=== PATIENT | male | born 1935 | race Caucasian/White ===

== ENCOUNTER 2023-11-06 19:29 | Inpatient (IN) | payer MEDICARE, BC, SELFPAY ==
[2023-11-01] VITALS (26 sets, daily range): BP systolic 78–175; BP diastolic 49–94; PULSE 69–82; BMI 25.3
--- NOTE | 2023-11-01 16:54 | ED.GENMED ---
History of Present Illness
General
Chief Complaint: Blood Pressure Problem
Source: patient and family
Time Seen by Provider: 11/01/23 16:28
History of Present Illness
History of Present Illness:
87yoM with a history of coronary artery disease s/p PCI, hypertension, hyperlipidemia, and CKD presenting for evaluation of dizziness. Patient had a syncopal episode yesterday afternoon. He was standing in his room when he started to 'not feel
right.' He then fell and lost consciousness. He was on the floor for about 1-1.5 hours until staff at his assisted living facility found him. He was evaluated at [facility] yesterday after the incident and had labs and a saini scan which were
reportedly normal. He received IV medications for elevated blood pressures during his ED stay and was ultimately discharged. He reports dizziness today which he describes as lightheadedness. Dizziness occurs with head movement and position changes.
Daughter states he was very wobbly today and he was having significant difficulty with ambulation. Daughter checked his BP today which was 180 systolic so she brought him to the ED. Patient's amlodipine was recently discontinued 2 weeks ago by his
report writer.
Phy Exam
General Physical Exam
General Presentation: well appearing and no apparent distress
General age: appears stated age
General Skin: warm and dry
General Habitus: normal
General Mental: alert
Cardiovascular Exam
Cardiovascular Exam: regular rate/rhythm and no edema
Pulmonary Exam
Pulmonary Exam: lungs clear, no respiratory distress, no crackles and no wheezing
Neurological Exam
Neurological Exam: alert
[place] Coma Scale
Eye Opening: Spontaneous
Verbal Response: Oriented
Motor Response: Obeys Commands
GCS Total Score: 15
Skin Exam
Skin Exam: normal color and warm/dry
Psychiatric Exam
Psychiatric Exam: normal mood/affect
Course
Orders/Labs/Results
Orders:
Orders
11/01/23 14:45
ECG [Electrocardiogram (*1)] Urgent
Reason for Study: Hypertension, Benign
11/01/23 14:46
EKG- Treatment ONCE
11/01/23 16:33
Case Management Consult ONCE
Case Management Consult: Discharge Planning
Requested By:: PT/FAMILY
Comment: Pt in assisted living. Daughter is concerned d/t pt weakness and needing more assistance.
11/01/23 16:52
Cardiac Monitoring- Treatment ONCE
11/01/23 16:53
PT Consult [Pt Eval And Treat] Urgent
Activity Level: Out of Bed- Ad Katherine
11/01/23 17:09
Complete Blood Count/With Diff Urgent
Comprehensive Metabolic Panel Urgent
TSH Reflex To Free T4 Routine
Troponin I Urgent
11/01/23 19:42
Admit/Transfer Patient As Directed
Co-Sign Provider:
Level of Care: Observation services
Assign to:: Telemetry
Physician / Group: Deni
Diagnosis: Dizziness / Fall
Reason for Telemetry: CVA/TIA
Date to Stop Telemetry: 11/04/23
Time to Stop Telemetry: 11:00
11/01/23 19:43
Code Status As Directed
Resuscitation Status: Do not resuscitate
Reached after discussion with pt or family/Healthcare POA: Yes
DNR Bracelet Application ONCE
11/01/23 20:51
Acetaminophen [Tylenol] 650 mg PO Q4HPRN PRN
Carvedilol [Coreg] 3.125 mg PO BID
Dextrose 50%-Water [Dextrose 50% Syringe] 12.5 grams IV [id number] PRN
Glucagon [GlucaGen] 1 mg IM PRN PRN
Meclizine [Antivert] 12.5 mg PO Q8HPRN PRN
11/01/23 20:51
Activity As Directed
Activity Level: Ambulate
With Assistance
Bedside Glucose Monitoring As Directed
Frequency: AC&HS
Additional Instructions:: Change to q6h if pt on TPN, tube feeding or not eating
Bladder Scan As Directed
Follow Bladder Retention/Intermittent Cath Algorithm?: Yes
PRN if no void in __ hours: 6
Frequency: Per Retention Algorithm
If Bladder Scan Result >: 400
then:: Straight cath
EKG with chest pain [ECG as needed] As Directed
ECG as needed for:: Chest Pain
I/O [Intake/ Output] As Directed
Frequency: Per unit guidelines
Neurological Checks As Directed
Frequency: q4h
Orthostatic Vital Signs As Directed
Orthostatic VS Frequency: BID
Pneumatic Compression Sleeves As Directed
Type: Knee high
Straight Cath As Directed
Frequency: Per Retention Algorithm
Additional Instructions: straight cath as needed per acute urinary retention algorithm for 24 hrs
Additional Instructions: for bladder scan greater than 400 mL
Vital Signs As Directed
Frequency: Per unit guidelines
Weight As Directed
Frequency: Daily
Oxygen Therapy [O2 Therapy] [RESP] Routine
Titrate/Wean O2 to maintain O2 sat greater than (%): 94
Ot Eval And Treat Routine
PT Consult [Pt Eval And Treat] Routine
Activity Level: Ambulate
With Assistance
DX Deep Vein Thrombosis Video Routine
11/01/23 22:00
Atorvastatin [Lipitor] 20 mg PO HS
11/01/23 23:00
Troponin I Q6H
11/02/23 Breakfast
2000 calorie (17 carb) Diabetic
At Your Request: Limited Participation
Does patient need a safe tray?: No
Fluid Restriction: 1440 mL/day (48 oz)
Basic Metabolic Panel IN AM
Cardiovascular Evaluation IN AM
Complete Blood Count/No Diff IN AM
Glycohemoglobin (HgbA1c) IN AM
MR Brain Without Contrast IN AM
Comment:
Reason For Exam: CVA / TIA
Recent pill cam endoscopy?: No
11/02/23 07:30
Insulin Aspart Corrective Low [Novolog Flexpen-Low Resistance] See Protocol SC AC
11/02/23 08:00
Aspirin Low Dose EC [Aspir Low (Enteric Coated)] 81 mg PO DAILY
Pantoprazole [Protonix] 40 mg PO DAILY
Sodium Chloride 1 gram PO DAILY
Valsartan [Diovan] 160 mg PO DAILY
11/04/23 11:00
DC Protocol for Telemetry ONCE
Abnormal Lab Results
11/01/23
17:09
RBC 3.27 L 10^6/uL
(4.70-6.10)
Hgb 12.0 L g/dL
(13.0-18.0)
Hct 33.2 L %
(39.0-52.0)
MCV 101.5 H fL
(80.0-94.0)
MCH 36.7 H pg
(27.0-31.0)
Absolute Neuts (auto) 6.7 H 10^3/uL
(1.4-6.5)
Absolute Monos (auto) 0.9 H 10^3/uL
(0.1-0.6)
Lymphocytes % 13.9 L %
(20.5-51.1)
Monocytes % 10.2 H %
(1.7-9.3)
Sodium 133 L mmol/L
(135-145)
Chloride 96 L mmol/L
(98-107)
BUN 36 H mg/dl
(9-20)
Creatinine 1.7 H mg/dL
(0.7-1.3)
Glucose 118 H mg/dl
(70-99)
Alkaline Phosphatase 187 H U/L
(38-126)
Troponin I 0.047 H* ng/ml
11/01/23 17:09
11/01/23 17:09
Vital Signs
Initial and Last Documented VS:
Initial Vital Signs
Temp Pulse BP Pulse Ox
97.9 F 56 127/57 97
11/01/23 14:35 11/01/23 14:35 11/01/23 14:35 11/01/23 14:35
Last Documented Vital Signs
Temp Pulse Resp BP Pulse Ox
97.8 F 69 18 153/78 95
11/01/23 23:15 11/01/23 23:15 11/01/23 23:15 11/01/23 23:15 11/01/23 23:15
MDM/Problems Addressed
Differential Diagnosis Includes:
87yoM here with dizziness. Had a syncopal episode yesterday. Seen at an outside ED and saini scan negative for injuries. He is now having dizziness with movement and ambulation. He is afebrile and hemodynamically stable. He is well appearing in no
distress. Differential diagnosis includes but is not limited to: postconcussive syndrome, peripheral vertigo, CVA, orthostatic hypotension
Initial ED plan: Check cardiac labs and EKG.
*EKG
Interpreted by ED Provider?: Yes
EKG Intrepretation Date: 11/01/23
Heart Rate: 60
Rate: normal
Rhythm: sinus
Gabbs: normal axis
Interval: normal interval
Ischemia: non-specific ST changes
*Critical Care Note
Total Time (30-74mins, 75-104mins- exclusive of procedures): Not Applicable
Update Note
Update Note:
Labs reveal a troponin of 0.047. No ST changes seen on EKG. Creatinine 1.7 which is baseline. Physical therapy unavailable for evaluation. Will admit for further evaluation and management.
ED Attending Note
-
Portions of this chart may have been created with voice recognition software.� Occasional wrong word or��sound alike� substitutions may have occurred due to the inherent limitations of voice recognition software.
Discharge Plan
Departure
Patient Disposition: Admit
Date of Disposition: 11/01/23
Time of Disposition: 19:11
Presentation/result/management discussed w/ accepting MD/DO: Hospitalist
Discharge Problem:
Dizziness, Elevated troponin
Interventions
Interventions:
*Risk Screen - Suicide Last Done: 11/01/23 14:39
*General Assessment Last Done: 11/01/23 14:39
*Neglect/Abuse Screening Last Done: 11/01/23 14:39
ED- Fall Risk Assessment Last Done: 11/01/23 20:45
*ED COVID-19 Vaccine History Last Done: 11/01/23 15:58
*Nursing Disposition Last Done: 11/01/23 20:45
ED- Cardiac Assessment Last Done: 11/01/23 15:57
ED- Neurological Assessment Last Done: 11/01/23 15:57
ED- Pulmonary Assessment Last Done: 11/01/23 15:57
Discharge Date and Time
Discharge Date/Time: 11/01/23 20:45
--- NOTE | 2023-11-01 16:54 | CM ---
CM met with patient and daughter in room. Patient and daughter confirmed that patient lives at [facility] in [place]. He is currently in assisted living and only receives medication assistance. Patient uses a rolling walker and daughter reports that
she able to have him visit with her in her home without mobility concerns. He has a fall and was treated at an outside hospital. Patient's daughter stated that his weakness and dizziness is new and she feels that he cannot safely ambulate.
RENETTA updated ED PA and bedside RN.
[2023-11-01 17:18] LABS: % Basophils 0.2 % (0-2); % Eosinophils 1.1 % (0-6); % Immature Granulocytes 0.3 % (0-0.5); % Lymphocytes 13.9 % (20.5-51.1); % Monocytes 10.2 % (1.7-9.3); % Neutrophils 74.3 % (42.2-75.2); Absolute Eosinophils 0.1 10^3/uL (0-0.7); Absolute Lymphocytes 1.3 10^3/uL (1.2-3.4); Absolute Monocytes 0.9 10^3/uL (0.1-0.6); Absolute Neutrophils 6.7 10^3/uL (1.4-6.5); Hematocrit 33.2 % (39.0-52.0); Mean Corp Hgb Conc. 36.1 g/dL (33.0-37.0); Mean Corpuscular Hgb 36.7 pg (27.0-31.0); Mean Corpuscular Volume 101.5 fL (80.0-94.0); Mean Platelet Volume 8.9 fL (7.4-10.4); Nucleated Red Blood Cells % 0 % (-); Platelet Count 163 10^3/uL (130-400); Red Blood Cell Count 3.27 10^6/uL (4.70-6.10); Red Cell Dist. Width 12.1 % (11.5-14.5)
[2023-11-01 17:34] LABS: ALT (SGPT) 49 U/L (0-50); AST (SGOT) 46 U/L (17-59); Albumin 4.1 g/dl (3.5-5.0); Alkaline Phosphatase 187 U/L (38-126); Blood Urea Nitrogen 36 mg/dl (9-20); Calcium 9.8 mg/dl (8.4-10.2); Carbon Dioxide 28 mmol/L (22-30); Chloride 96 mmol/L (98-107); Glucose 118 mg/dl (70-99); Sodium 133 mmol/L (135-145); Total Bilirubin 0.9 mg/dl (0.2-1.3); Total Protein 6.9 g/dl (6.3-8.2); eGFR 39.02
[2023-11-01 17:47] LABS: Troponin I 0.047 ng/ml
--- NOTE | 2023-11-01 19:46 | HPS.HSE ---
Family Physician
-
Family Physician: * NONE
Chief Complaint
-
Syncope
History of Present Illness
Patient is an 87y M with PMH significant for ASCVD, CKD, HTN and DM-II who presents to ED complaining of dizziness. Patient was feeling well yesterday AM and is independent with ADLs at baseline - though he lives in an assisted living facility.
Yesterday evening he began to feel dizzy and lightheaded. He describes room spinning sensation, unsteadiness as well as lightheadedness. The next thing he recalls is waking on the floor of his apartment. He does not recall the fall itself and it
is clear that he lost consciousness for some period of time. He had a single episode of non-bloody emesis. He was not incontinent of bowel / bladder. He was able to crawl to his medial alert button and summon the staff. Patient was taken to [facility]
where he underwent CT head through the pelvis which was unremarkable. He was discharged back to home.
Patient was placed by medical transport into a chair at his bedside and he notes that he stayed there throughout the night as he was too afraid to try and get from the chair to his bed.
This AM, family came to see him and noted that he seemed very weak. He was unable to stand unassisted. He complains of dizziness / lightheadedness with standing or even with sitting upright.
Patient denies any prior history of similar symptoms. He denies any recent complaints of sore throat, cough, fevers / chills, etc.
Family brought patient to the ED here at today for further evaluation.
Daughter reports that medications changed about 9 days ago including cessation of amlodipine and increase in carvedilol to BID.
Medical History
Past Medical History
Past Medical History: Reports Other
Additional Past Medical History:
ASCVD
Hypertension
CKD III (Baseline creatinine 1.7)
Chronic Hyponatremia
Diet-Controlled DM-II
History of LLE DVT (s/p TKA)
Benign Essential Tremor
GERD
Past Surgical History: Reports Other
Additional Past Surgical History:
PTCA with Stent x 3
ERCP with Sphincterotomy
Left TKA
Social History
Tobacco: Non-smoker
Alcohol: None
Drug: None
Living: Alf
Family History
Family History: Not pertinent
Allergies / Home Medications
Allergies reflects when Allergies were last updated in [facility].
Home Medications with original date entered in [facility]
Allergy/Medication List:
Allergies
Allergy/AdvReac Type Severity Reaction Status Date / Time
No Known Allergies Allergy Verified 11/01/23 14:38
Home Medications
aspirin 81 mg tablet,delayed release 81 mg PO DAILY 11/01/23
atorvastatin 20 mg tablet 20 mg PO HS 11/01/23
carvedilol 3.125 mg tablet 3.125 mg PO BID 11/01/23
cholecalciferol (vitamin D3) 25 mcg (1,000 unit) tablet 25 mcg PO DAILY 11/01/23
ondansetron HCl 4 mg tablet 4 mg PO Q8HPRN PRN nausea 11/01/23
pantoprazole 40 mg tablet,delayed release 40 mg PO DAILY 11/01/23
sodium chloride 1,000 mg soluble tablet 1,000 mg PO DAILY 11/01/23
therapeutic multivitamin 1 tab PO DAILY 11/01/23
valsartan 160 mg tablet 160 mg PO DAILY 11/01/23
Review of Systems
-
History Source: Patient
A 12 point ROS was completed and negative except as noted: Yes
Constitutional: Reports Fatigue; Denies Fever or Chills
EENT: Denies Sore Throat
Respiratory: Denies Cough or Trouble Breathing
Cardiac: Denies Chest Pain or Palpitations
Abdomen/GI: Reports Nausea and Vomiting; Denies Abdominal Pain, Diarrhea, Constipated, Bloody Stools or Black Stools
: Denies Dysuria, Frequency, Flank Pain or Incontinence
Musculoskeletal: Denies Joint Pain or Edema
Neurological: Reports Dizzy and Weakness; Denies Headache or Numbness
Psych: Denies Depression or Anxiety
Physical Exam
Vital Signs
Vital Signs
Temp Pulse Resp BP Pulse Ox
97.9 F 74 20 135/49 98
11/01/23 14:35 11/01/23 19:30 11/01/23 19:30 11/01/23 19:30 11/01/23 19:30
Physical Exam
General: Other (87y M in no acute distress.)
HEENT: Moist mucous membranes and PERRLA
Respiratory: Clear; No Wheezes, Rales or Rhonchi
Cardiac: S1/S2 and Regular Rhythm; No Murmur
GI: Soft, Non Tender, Non Distended and Normal Bowel Sounds
Musculoskeletal: No Clubbing, No Cyanosis and Other (1+ pitting edema at the ankles bilaterally.)
Neuro: AO x 3 and Other (Mild generalized tremor with intention. No focal weakness. [id number] seems intact, though somewhat difficult to assess given baseline tremor.)
Laboratory Results
-
11/01/23 17:09
11/01/23 17:09
Laboratory Results
Total Bilirubin 0.9 mg/dl (0.2-1.3) 11/01/23 17:09
AST 46 U/L (17-59) 11/01/23 17:09
ALT 49 U/L (0-50) 11/01/23 17:09
Alkaline Phosphatase 187 U/L (38-126) H 11/01/23 17:09
Troponin I 0.047 ng/ml H* 11/01/23 17:09
Impression/Plan
-
A/P: Patient is an 87y M with PMH significant for ASCVD, HTN and DM-II who presents to ED for evaluation of dizziness and recent syncopal episode.
Syncope
Dizziness / Ataxia
- Observe overnight for further evaluation and treatment.
- ? BPPV versus posterior circulation CVA versus other.
- BP was reportedly quite elevated during ED visit @ [facility] yesterday.
- Follow for any neurologic symptoms / exam changes.
- MR brain in the AM.
- PT / OT evaluations.
- Follow for any new / recurrent symptoms.
- Meclizine PRN for any recurrent / persistent dizziness.
ASCVD
- No complaints of chest pain, dyspnea, etc.
- Continue current CV med regimen including ASA, statin, etc.
- Troponin value noted and suspect elevation secondary to CKD.
- HS-Trop value at [facility] yesterday was 30. Very similar range.
- Repeat x 1 to rule out any significant elevation.
CKD III
- Stable. Renal function is at / near known baseline (1.7).
- Follow for any changes. Patient did receive IV contrast for CT scans done at [facility] yesterday.
Benign Hypertension
- BP stable here in the ED, reportedly quite elevated yesterday @ [facility] with systolic values > 200.
- Note recent med change / cessation of amlodipine.
- Continue current OP med regimen for now.
- Adjust as needed for goal of normotension.
Chronic Hyponatremia
- Stable. Na levels currently better than baseline (around 130).
- Continue salt supplementation.
- Avoid unnecessary fluid resuscitation.
- Follow for any changes.
Diet-Controlled DM-II
- Stable on no medications.
- Follow glucose and cover with SSI if needed.
- Update A1C.
DVT Prophylaxis: SCDs
Code Status: DNR
[2023-11-01 22:09] LABS: TSH Reflex To Free T4 1.75 uIU/ml (0.47-4.68)
[2023-11-01 22:22] LABS: Glucose - Point of Care 118 mg/dl (70-99)
[2023-11-01] MEDS: COREG 3.125 MG PO (22:39)
[2023-11-01] MEDS: LIPITOR 20 MG PO (22:40)
--- NOTE | 2023-11-01 23:31 | PTCARENOTE ---
Receive pt from ER. Pt alert oriented X3, forgetful at times, in no distress. Pt states that he feels dizzy when he stands up. Pt was pulled over to his bed from ER stretcher. Pt oriented to the room, call arnold within reach. Pt on NSR w/BBB + first
degree HB on telemonitor. YP=060/66, hvvmjw=462/69, HR=68, T=97.6, RR=18, SpO2=96% on RA. Neurocheck with no abnormalities. Pt positive for orthostatic hypotension(Lyin/78, HR=69. Sitting TX=495/75, HR=73, Standing BP=78/49, HR=82). Pt reports
dizziness upon standing. Pt' blood hfqst=201. Pt was incontinent for urine. Bed alarm in place for pt's safety. Will continue to monitor the pt.
[2023-11-02] VITALS (9 sets, daily range): BP systolic 117–174; BP diastolic 58–75; PULSE 58–84; O2SAT 98; BMI 25.3
[2023-11-02 00:46] LABS: Troponin I 0.045 ng/ml
[2023-11-02 07:32] LABS: Hematocrit 29.4 % (39.0-52.0); Mean Corp Hgb Conc. 37.4 g/dL (33.0-37.0); Mean Corpuscular Hgb 35.8 pg (27.0-31.0); Mean Corpuscular Volume 95.8 fL (80.0-94.0); Mean Platelet Volume 9.3 fL (7.4-10.4); Platelet Count 162 10^3/uL (130-400); Red Blood Cell Count 3.07 10^6/uL (4.70-6.10); Red Cell Dist. Width 11.9 % (11.5-14.5); White Blood Cell Count 6.8 10^3/uL (4.8-10.8)
[2023-11-02 07:44] LABS: Blood Urea Nitrogen 31 mg/dl (9-20); Calcium 9.4 mg/dl (8.4-10.2); Carbon Dioxide 23 mmol/L (22-30); Chloride 99 mmol/L (98-107); Estimated Creatinine Clearance 32 ml/min; Glucose 91 mg/dl (70-99); HDL Cholesterol 42 mg/dl; LDL Cholesterol, Calculated 54 mg/dl; Potassium 4.5 mmol/L (3.5-5.1); Sodium 134 mmol/L (135-145); Total Cholesterol 113 mg/dl (50-199); Triglyceride 88 mg/dl (10-149); Very Low Density Lipoprotein 17 mg/dl (0-30); eGFR 41.96
[2023-11-02 08:05] LABS: Glucose - Point of Care 95 mg/dl (70-99)
[2023-11-02] MEDS: COREG 3.125 MG PO (09:05)
[2023-11-02] MEDS: ASPIR LOW (ENTERIC COATED) 81 MG PO (09:05)
[2023-11-02] MEDS: NOVOLOG FLEXPEN-LOW RESISTANCE SC ×3 (09:05→16:49)
[2023-11-02] MEDS: DIOVAN 160 MG PO (09:05)
[2023-11-02] MEDS: SODIUM CHLORIDE 1 GRAM PO (09:05)
[2023-11-02] MEDS: PROTONIX 40 MG PO (09:05)
[2023-11-02] MEDS: ANTIVERT 12.5 MG PO (09:08)
--- NOTE | 2023-11-02 10:02 | W.PN.HOSP.TC ---
Addendum entered and electronically signed by Goran De Los Santos DO 11/02/23 15:49:
Updated daughter Kathia on the phone. All questions answered.
Brain MRI negative for stroke. Does show small focus of old microhemorrhage. Suspect related to relatively uncontrolled blood pressure.
Daughters states that amlodipine was discontinued 2 weeks ago by the patient's horse buyer, reasons unclear.
Still waiting for PT/OT assessment.
Original Note:
Today's Communication/Plan
-
PT/OT
Compression stockings
Midodrine as needed
MRI brain
Echocardiogram
Assessment / Plan
Assessment / Plan
Gen-AAOx3, NAD
HEENT-NC, AT, anicteric, clear oral mm
Neck-supple
CV-reg, no M, +S1/S2
Lungs-clear B/L
Abd-soft, NT, ND
Ext-no edema
Musculoskeletal-no cyanosis, clubbing
Skin-warm and dry
Neuro-grossly non-focal
Psych-calm, cooperative
Syncope -possibly related to orthostatic hypotension. Monitor on telemetry. Check echocardiogram. Patient states he had no premonitory symptoms prior to syncope. Rule out arrhythmic etiology as well.
Orthostatic hypotension -unclear etiology. Differential diagnosis includes medication related versus autonomic dysfunction versus other. Compression stockings ordered. Can add midodrine as needed.
Vertigo -suspect BPPV. PT/OT consulted. Brain MRI ordered by kettle fry cook operator, still pending.
Essential hypertension -complicated by orthostatic hypotension. On low-dose carvedilol, valsartan.
Chronic hyponatremia -sodium stable, 134.
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
CAD -stable. Mild troponin elevation noted and likely acute nonischemic myocardial injury, etiology unclear. Patient denies chest pain or shortness of breath.
Hyperlipidemia -on atorvastatin.
DM2 without hyperglycemia -diet controlled.
DNR
Anticipated Discharge: Within 24 hours
Subjective/Interval History
-
Date of Service: November 02, 2023
Patient seen and examined. Does have transient vertigo with turning of his head.
Objective Data
-
Labs:
Laboratory Results
11/02/23
06:35
WBC 6.8
Hgb 11.0 L
Hct 29.4 L
Plt Count 162
Sodium 134 L
Potassium 4.5
Chloride 99
Carbon Dioxide 23
BUN 31 H
Creatinine 1.6 H
Glucose 91
Calcium 9.4
Vital Signs:
Vital Signs
Temp Pulse Resp BP Pulse Ox
98 F 64 22 161/68 94
11/02/23 07:41 11/02/23 07:41 11/02/23 07:41 11/02/23 07:41 11/02/23 07:41
Review of Systems
-
History Source: Patient
All other systems: Reviewed and negative
[2023-11-02 11:53] LABS: Glucose - Point of Care 158 mg/dl (70-99)
[2023-11-02 14:29] LABS: Glycohemoglobin (HgbA1c) 6.1 % (4.0-5.6)
--- NOTE | 2023-11-02 15:38 | CM ---
Patient from [facility] with Dx syncope, vertigo. MRI today. PT/OT Evals pending.
Spoke with patient and daughter Kathia;
the patient resides alone at [facility], which has a ramp at entrance and elevator.
He is mostly independent for ADLs and ambulation, using a RW when he goes out.
Daughter states patient had fallen in Feb and on September 23.
DME - RW, w/c.
Prior VN - can't remember agency
No prior SNF
Prior [facility]
PCP - Tyesha Sorensen
Pharmacy - [facility]
Daughter would like to be contacted after seen by PT/OT.
Plan contact daughter after PT/OT Evals completed.
[2023-11-02 16:41] LABS: Glucose - Point of Care 126 mg/dl (70-99)
[2023-11-02] MEDS: COREG PO (20:21)
[2023-11-02] MEDS: LIPITOR 20 MG PO (21:18)
[2023-11-02 22:14] LABS: Glucose - Point of Care 130 mg/dl (70-99)
[2023-11-03] VITALS (7 sets, daily range): BP systolic 110–161; BP diastolic 53–70; PULSE 62–73; BMI 25.2
[2023-11-03 08:46] LABS: Glucose - Point of Care 96 mg/dl (70-99)
[2023-11-03] MEDS: NOVOLOG FLEXPEN-LOW RESISTANCE SC ×3 (08:50→17:25)
[2023-11-03] MEDS: DIOVAN 160 MG PO (10:49)
[2023-11-03] MEDS: COREG 3.125 MG PO ×2 (10:50→20:07)
[2023-11-03] MEDS: SODIUM CHLORIDE 1 GRAM PO (10:50)
[2023-11-03] MEDS: ASPIR LOW (ENTERIC COATED) 81 MG PO (10:50)
[2023-11-03] MEDS: PROTONIX 40 MG PO (10:50)
[2023-11-03 12:43] LABS: Glucose - Point of Care 146 mg/dl (70-99)
--- NOTE | 2023-11-03 15:52 | W.PN.HOSP.TC ---
Today's Communication/Plan
-
PT/OT, placement
Assessment / Plan
Assessment / Plan
Gen-AAOx3, NAD
HEENT-NC, AT, anicteric, clear oral mm
Neck-supple
CV-reg, no M, +S1/S2
Lungs-clear B/L
Abd-soft, NT, ND
Ext-no edema
Musculoskeletal-no cyanosis, clubbing
Skin-warm and dry
Neuro-grossly non-focal
Psych-calm, cooperative

BRAIN MRI ( PER RADIOLOGIST'S REPORT)
'IMPRESSION: No evidence of acute intracranial abnormality.
The IACs have a normal MR appearance. No evidence for cerebellopontine angle mass.
In the left superior paramedian frontal lobe, there is a small focus of decreased T2 gradient-echo signal, which is most likely a small focus of old microhemorrhage. Additionally, in the posterior and superior right parietal lobe, subtle findings of
superficial siderosis, asymmetric compared to the left parietal lobe, suggestive of old hemorrhage.
Moderate diffuse atrophy.
Mild to moderate T2 and FLAIR white matter hyperintensities, commonly seen with aging and usually attributed to small vessel ischemic disease.
Paranasal sinus disease as described. Increased T2-weighted signal within the mastoid air cells, which is most likely benign trapped fluid'
ECHOCARDIOGRAM ( PER RADIOLOGIST'S REPORT)
'CONCLUSIONS
Normal left ventricular size with mild concentric remodeling and normal left
ventricular systolic function. Left ventricular ejection fraction is 59% by
Honeycutt's method. Stage I diastolic dysfunction suggestive of abnormal
relaxation.
Normal right ventricular size and function.
Normal atria.
Thickened aortic valve with normal leaflet excursion. Mild aortic
regurgitation.
No other significant valve abnormalities.
No evidence of pulmonary hypertension.'

Syncope -possibly related to orthostatic hypotension. Monitor on telemetry. Echocardiogram with mild aortic regurgitation (among other findings). Patient states he had no premonitory symptoms prior to syncope. Rule out arrhythmic etiology as
well.
Orthostatic hypotension -unclear etiology. Differential diagnosis includes medication related versus autonomic dysfunction versus other. Compression stockings ordered. Can add midodrine as needed.
Vertigo -suspect BPPV. PT/OT consulted. Brain MRI ordered by jonathan, still pending.
Essential hypertension -complicated by orthostatic hypotension. On low-dose carvedilol, valsartan.
Chronic hyponatremia -sodium stable, 134.
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
CAD -stable. Mild troponin elevation noted and likely acute nonischemic myocardial injury, etiology unclear. Patient denies chest pain or shortness of breath.
Hyperlipidemia -on atorvastatin.
DM2 without hyperglycemia -diet controlled.
DNR
Anticipated Discharge: 24 - 48 hours
Subjective/Interval History
-
Date of Service: November 03, 2023
Patient was seen and examined. He denied any new symptoms or complaints.
Objective Data
-
Vital Signs:
Vital Signs
Temp Pulse Resp BP Pulse Ox
97.9 F 63 18 125/61 98
11/03/23 12:26 11/03/23 12:26 11/03/23 12:26 11/03/23 12:26 11/03/23 12:26
I&O
11/02/23 11/03/23 11/04/23
06:59 06:59 06:59
Intake Total 240 / 240
Balance 240 / 240
--- NOTE | 2023-11-03 16:21 | CM ---
Addendum entered by Luma Guzman RN 11/04/23 13:01:
correction
Original Note:
Spoke with pt in room.
PT OT said SNF.
Pt has dietary needs she would like to know if SNf can provide her diet.
Spoke with Marisel at [facility] she is checking on a bed.
Spoke with Cira at [facility] . Cira is checking on bed.
Pt had vertebroplasty today.
Pt has Caba.
PLAN To SNF after located..
[2023-11-03 17:27] LABS: Glucose - Point of Care 112 mg/dl (70-99)
[2023-11-03] MEDS: LIPITOR 20 MG PO (20:07)
[2023-11-03 21:22] LABS: Glucose - Point of Care 149 mg/dl (70-99)
[2023-11-04] VITALS (7 sets, daily range): BP systolic 131–190; BP diastolic 55–81; PULSE 57–79; BMI 25.1
[2023-11-04] MEDS: DIOVAN 160 MG PO (07:51)
[2023-11-04] MEDS: COREG 3.125 MG PO ×2 (07:51→20:04)
[2023-11-04] MEDS: ASPIR LOW (ENTERIC COATED) 81 MG PO (07:51)
[2023-11-04] MEDS: PROTONIX 40 MG PO (07:52)
[2023-11-04] MEDS: SODIUM CHLORIDE 1 GRAM PO (07:52)
[2023-11-04] MEDS: NOVOLOG FLEXPEN-LOW RESISTANCE SC ×3 (07:52→16:46)
[2023-11-04 08:09] LABS: Glucose - Point of Care 104 mg/dl (70-99)
--- NOTE | 2023-11-04 11:00 | PTCARENOTE ---
Patient in chair with near syncopal episode. Pale, diaphoretic, arousable but drowsy. Assisted back to bed. Patient complaining of dizziness in bed. BP 145/63. made aware.
--- NOTE | 2023-11-04 11:17 | W.PN.HOSP.TC ---
Addendum entered and electronically signed by Jf Hankins MD 11/04/23 11:26:
Will consult neurology (given patient's room spinning dizziness) and cardiology due to his lightheadedness and near syncope this morning.
Original Note:
Today's Communication/Plan
-
Discharge today
Assessment / Plan
Assessment / Plan
Gen-AAOx3, NAD
HEENT-NC, AT, anicteric, clear oral mm
Neck-supple
CV-reg, no M, +S1/S2
Lungs-clear B/L
Abd-soft, NT, ND
Ext-no edema
Musculoskeletal-no cyanosis
Skin-warm and dry
Neuro-grossly non-focal
Psych-calm, cooperative

BRAIN MRI ( PER RADIOLOGIST'S REPORT)
'IMPRESSION: No evidence of acute intracranial abnormality.
The IACs have a normal MR appearance. No evidence for cerebellopontine angle mass.
In the left superior paramedian frontal lobe, there is a small focus of decreased T2 gradient-echo signal, which is most likely a small focus of old microhemorrhage. Additionally, in the posterior and superior right parietal lobe, subtle findings of
superficial siderosis, asymmetric compared to the left parietal lobe, suggestive of old hemorrhage.
Moderate diffuse atrophy.
Mild to moderate T2 and FLAIR white matter hyperintensities, commonly seen with aging and usually attributed to small vessel ischemic disease.
Paranasal sinus disease as described. Increased T2-weighted signal within the mastoid air cells, which is most likely benign trapped fluid'
ECHOCARDIOGRAM ( PER RADIOLOGIST'S REPORT)
'CONCLUSIONS
Normal left ventricular size with mild concentric remodeling and normal left
ventricular systolic function. Left ventricular ejection fraction is 59% by
Honeycutt's method. Stage I diastolic dysfunction suggestive of abnormal
relaxation.
Normal right ventricular size and function.
Normal atria.
Thickened aortic valve with normal leaflet excursion. Mild aortic
regurgitation.
No other significant valve abnormalities.
No evidence of pulmonary hypertension.'

Syncope -possibly related to orthostatic hypotension. Monitor on telemetry. Echocardiogram with mild aortic regurgitation (among other findings). Patient states he had no premonitory symptoms prior to syncope. Rule out arrhythmic etiology as
well. Follow-up with cardiology closely outpatient.
Orthostatic hypotension -unclear etiology. Differential diagnosis includes medication related versus autonomic dysfunction versus other. Compression stockings and abdominal binder ordered. Can add midodrine as needed.
Vertigo -suspect BPPV. PT/OT consulted. Brain MRI ordered by educational administration teacher, still pending.
Essential hypertension -complicated by orthostatic hypotension. On low-dose carvedilol. On valsartan.
Chronic hyponatremia -sodium stable, 134.
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
CAD -stable. Mild troponin elevation noted and likely acute nonischemic myocardial injury, etiology unclear. Patient denies chest pain or shortness of breath.
Hyperlipidemia -on atorvastatin.
DM2 without hyperglycemia -diet controlled.
DNR
More than 30 minutes spent in discharge including
Final examination of the patient
Summarizing hospital stay
Instructions for continuing care to all relevant caregivers
Preparation of discharge records, prescriptions, and referral forms
Total time spent (in minutes): 39
Anticipated Discharge: Today
Subjective/Interval History
-
Date of Service: November 04, 2023
Patient was seen and examined. He denied any new symptoms or complaints.
Objective Data
-
Vital Signs:
Vital Signs
Temp Pulse Resp BP Pulse Ox
97.3 F 66 16 180/81 98
11/04/23 07:25 11/04/23 07:25 11/04/23 07:25 11/04/23 07:25 11/04/23 08:00
I&O
11/03/23 11/04/23 11/05/23
06:59 06:59 06:59
Intake Total 240 / 240 960 / 960
Output Total 750 / 750
Balance 240 / 240 210 / 210
--- NOTE | 2023-11-04 12:36 | CON.CAR ---
Addendum entered and electronically signed by Donavan High MD 11/04/23 16:21:
I saw and examined the patient.
The FREIGHT BRAKEMAN's note was reviewed and I agree with the note.
87-year-old male with history of CAD. Distant history of coronary stenting, hypertension, diabetes and CKD who presents with weakness and dizziness. Patient had about 5 falls in the last 2 years most recently he states he had gotten up at home and
initially felt okay and was walking around and then had to hold onto something and then thought he was feeling better and then ended up falling to the ground with what sounded to be a syncopal episode. He did hit his head and was evaluated at [facility]. Subsequently was discharged his daughter is at the bedside and provided additional history. She states she went to see him and he was just too weak to get up and was feeling dizzy. Patient had no other episodes of syncope. No
palpitations or heart racing. Although some of these episodes occurred while standing he does not always feel lightheaded when he first stands up. Blood pressure is well in bed have been stable and if anything have been hypertensive. ECG as noted
below for sinus rhythm with first-degree AV block DC interval 290 and a right bundle branch block. Issues were reviewed with nursing staff. They state that patient was ambulating today and doing fine and then sat in a chair. They then evaluated
him and he appeared pale and a bit diaphoretic so they got him right back into bed. When he got into bed his systolic blood pressures were in the 140s however they did not check his blood pressure when he was in the chair and did not appear to be
feeling well. He was on telemetry with no evidence of significant arrhythmia.Echocardiogram this admission with normal left ventricular function and mild aortic regurgitation
-Exact cause for the above events is not clear. Patient's has falls and most recently had 1 suspected episode of syncope. Patient does have significant conduction disease including first-degree AV block and right bundle branch block so need to
consider the possibility of bradycardia arrhythmia. However patient had some symptoms today of lightheadedness and did not have significant arrhythmia.
-Possibility of orthostatic hypotension or labile hypertension is a consideration. Will continue to assess orthostatics and assess blood pressures.
-Although it does not explain his fall it is possible that some of his symptoms of dizziness and not feeling well could be some postconcussive symptoms
-With patient's issues with falls and dizziness without clear cause may consider neurologic assessment as well..
-If no clear cause noted during hospitalization outpatient cardiac monitoring
Original Note:
Consultation
Consultation Request
Date/Time Consultation Requested: 11/04/2023
Date/Time Consultation Performed: 11/04/2023
Requesting Provider: Dr Jf Hankins
Performing Provider: Dr High
Reason for Consultation: Syncope
Medical History
-
Chief Complaint: Syncope
History of Present Illness:
Mr Jhon Ram is an 87 y/o male with PMH significant for ASCVD, CKD, HTN, DM-II who presented to ED 11/01/2023 complaining of dizziness. Patient reports he began to feel dizzy and lightheaded 3 days before presentation to ER, leading him to
fall. Patient described room spinning sensation, unsteadiness and lightheadedness before the fall. He reports he doesn't recall falling but was able to crawl to his medical alert button and summon the staff. Patient was taken to [facility] where he
underwent a CT head which was unremarkable. He was discharged back to his assisted living facility. His daughter noted patient fatigue, weakness, continued dizziness post-discharge and not at previous baseline, hence she decided to bring patient
to ED. On Presentation to the ED, evaluation with MRI unremarkable. EKG on admission sinus rhythm with first-degree AV block and right bundle branch block. Today, patient had an episode of lightheadedness, dizziness and near syncope, hence we
are being consulted to evaluate patient. Per daughter,patient has not had an episode of syncope in the past. He has had history of 5 falls in the past year
Past Medical History
Past Medical History: Other (Hypertension, CKD stage III baseline creatinine 1.7, chronic hyponatremia, diabetes mellitus 2, history of lower extremity DVT, essential tremor, GERD)
Past Surgical History: Other (PTCA with stents x 3)
Social History
Tobacco: Non-Smoker
Alcohol: None
Drug: None
Living: [facility]
Family History
Family History: Reviewed & Not Pertinent
Allergies / Home Medications
Allergy/AdvReac Type Severity Reaction Status Date / Time
No Known Allergies Allergy Verified 11/01/23 14:38
�Medication �Instructions �Recorded �Confirmed �Type
aspirin 81 mg tablet,delayed 81 mg PO DAILY Blood Clot 11/01/23 11/01/23 History
release Prevention/Tx
atorvastatin 20 mg tablet 20 mg PO HS High Cholesterol 11/01/23 11/01/23 History
carvedilol 3.125 mg tablet 3.125 mg PO BID Heart 11/01/23 11/01/23 History
Disease/Condition
cholecalciferol (vitamin D3) 25 25 mcg PO DAILY Supplement 11/01/23 11/01/23 History
mcg (1,000 unit) tablet
ondansetron HCl 4 mg tablet 4 mg PO Q8HPRN PRN nausea 11/01/23 11/01/23 History
pantoprazole 40 mg tablet,delayed 40 mg PO DAILY Gastrointestinal 11/01/23 11/01/23 History
release Issue
sodium chloride 1,000 mg soluble 1,000 mg PO DAILY Electrolyte 11/01/23 11/01/23 History
tablet Repletion
therapeutic multivitamin 1 tab PO DAILY Supplement 11/01/23 11/01/23 History
valsartan 160 mg tablet 160 mg PO DAILY Blood Pressure 11/01/23 11/01/23 History
Review of Systems
-
All other systems: Negative unless noted
Physical Exam
Vital Signs
Temp Pulse Resp BP Pulse Ox
98.2 F 59 20 145/63 97
11/04/23 11:10 11/04/23 11:10 11/04/23 11:10 11/04/23 11:10 11/04/23 11:10
Lab Results
Troponin I 0.045 ng/ml H* 11/02/23 00:14
Physical Exam
General: No Apparent Distress
Respiratory: Clear; Negative Wheezes or Crackles
Cardiac: S1/S2 and Regular Rhythm; Negative Murmur
Musculoskeletal: No Edema
Neuro: Nonfocal/Grossly Intact
Impression / Plan
-
Impression/plan
Syncope
EKG on presentation sinus rhythm with first-degree AV block and right bundle branch block. As this is one-time episode of syncope,
-Check orthostatics
-Monitor on telemetry
-Echo 11/03/2023 with left ejection fraction 59%
[2023-11-04 12:53] LABS: % Basophils 0.4 % (0-2); % Eosinophils 3.3 % (0-6); % Immature Granulocytes 0.4 % (0-0.5); % Lymphocytes 10.8 % (20.5-51.1); % Monocytes 10.5 % (1.7-9.3); % Neutrophils 74.6 % (42.2-75.2); Absolute Eosinophils 0.3 10^3/uL (0-0.7); Absolute Lymphocytes 0.9 10^3/uL (1.2-3.4); Absolute Monocytes 0.9 10^3/uL (0.1-0.6); Absolute Neutrophils 6.1 10^3/uL (1.4-6.5); Hematocrit 31.1 % (39.0-52.0); Hemoglobin 11.3 g/dL (13.0-18.0); Mean Corp Hgb Conc. 36.3 g/dL (33.0-37.0); Mean Corpuscular Hgb 35.5 pg (27.0-31.0); Mean Corpuscular Volume 97.8 fL (80.0-94.0); Mean Platelet Volume 8.9 fL (7.4-10.4); Nucleated Red Blood Cells % 0 % (-); Platelet Count 148 10^3/uL (130-400); Red Blood Cell Count 3.18 10^6/uL (4.70-6.10); Red Cell Dist. Width 11.8 % (11.5-14.5); White Blood Cell Count 8.2 10^3/uL (4.8-10.8)
[2023-11-04 12:57] LABS: ALT (SGPT) 35 U/L (0-50); AST (SGOT) 40 U/L (17-59); Albumin 3.7 g/dl (3.5-5.0); Alkaline Phosphatase 160 U/L (38-126); Blood Urea Nitrogen 24 mg/dl (9-20); Calcium 9.2 mg/dl (8.4-10.2); Carbon Dioxide 23 mmol/L (22-30); Chloride 98 mmol/L (98-107); Estimated Creatinine Clearance 34 ml/min; Glucose 133 mg/dl (70-99); Magnesium 1.9 mg/dl (1.6-2.3); Potassium 4.6 mmol/L (3.5-5.1); Sodium 131 mmol/L (135-145); Total Protein 6.3 g/dl (6.3-8.2); eGFR 45.34
[2023-11-04 13:00] LABS: Glucose - Point of Care 149 mg/dl (70-99)
--- NOTE | 2023-11-04 13:02 | CM ---
PT OT evals= VN .
Spoke with Kathia bueno [phone] reviewed PT OT evals . She requested [facility]. Referral placed in care port.
Spoke with Flor at [facility] she requested report and fax when pt returns to Assisted living at [facility].
Kathia bueno will transport.
[facility] assisted [facility]
report [phone]
fax [phone]
PLAN Return to AL at [facility] with [facility] fax [phone]
[2023-11-04 16:42] LABS: Glucose - Point of Care 118 mg/dl (70-99)
[2023-11-04] MEDS: LIPITOR 20 MG PO (20:06)
[2023-11-04 21:17] LABS: Glucose - Point of Care 193 mg/dl (70-99)
[2023-11-05] VITALS (7 sets, daily range): BP systolic 108–205; BP diastolic 58–85; PULSE 66–75; BMI 25.1
[2023-11-05 08:19] LABS: Glucose - Point of Care 118 mg/dl (70-99)
[2023-11-05] MEDS: ANTIVERT 12.5 MG PO (08:21)
[2023-11-05] MEDS: DIOVAN 160 MG PO (08:21)
[2023-11-05] MEDS: COREG 3.125 MG PO ×2 (08:21→20:37)
[2023-11-05] MEDS: PROTONIX 40 MG PO (08:21)
[2023-11-05] MEDS: ASPIR LOW (ENTERIC COATED) 81 MG PO (08:21)
[2023-11-05] MEDS: TYLENOL 650 MG PO (08:21)
[2023-11-05] MEDS: SODIUM CHLORIDE 1 GRAM PO (08:21)
[2023-11-05] MEDS: NOVOLOG FLEXPEN-LOW RESISTANCE SC ×3 (08:22→16:42)
[2023-11-05 08:32] LABS: Blood Urea Nitrogen 23 mg/dl (9-20); Calcium 9.2 mg/dl (8.4-10.2); Carbon Dioxide 24 mmol/L (22-30); Chloride 98 mmol/L (98-107); Estimated Creatinine Clearance 36 ml/min; Glucose 114 mg/dl (70-99); Magnesium 1.9 mg/dl (1.6-2.3); Potassium 4.5 mmol/L (3.5-5.1); Sodium 133 mmol/L (135-145); eGFR 49.25
--- NOTE | 2023-11-05 08:56 | W.PN.CD ---
Addendum entered and electronically signed by Donavan High MD 11/05/23 13:15:
I saw and examined the patient.
The FP PGY2 note was reviewed and I agree with the note.
Patient denies having episodes of dizziness overnight. No orthostatic blood pressure changes. Patient had an episode of vomiting with associated bradycardia. Review of telemetry shows sinus rhythm and sinus bradycardia followed by a pause there
is no clear QRS complex for approximately 6 seconds although there is a period of artifact and there is a question of whether there may have been a QRS complex within that artifact. Bradycardia then improved. May have been a vagal episode related
to nausea however it is possible that the patient also had nausea related to the symptoms. Patient does report that he periodically feels sick to his stomach. This is associated with his episodes of lightheadedness. Possible that he is having
similar episodes of bradycardia at home contributing to falls. With patient's underlying conduction disease and the above findings would consider pacing. Reviewed issues with both the patient and his daughter. Will further review with EP
-N.p.o. for possible pacemaker tomorrow.
-Of note patient has left shoulder pain related to fall has been seen by Ortho. Will have additional outpatient follow-up to monitor this. Patient is right-hand dominant
Original Note:
Today's Communication / Plan
-
.
Impression / Plan
-
Impression/plan
Dizziness
Syncope
EKG on presentation sinus rhythm with first-degree AV block and right bundle branch block.
-Continue to assess orthostatics, assess blood pressures
-Monitor on telemetry
-Echo 11/03/2023 with left ejection fraction 59%
-Outpatient cardiac monitoring if no clear cause.
Physical Exam
Vital Signs/Labs
Vital Signs
Temp Pulse Resp BP Pulse Ox
97.9 F 66 16 205/85 98
11/05/23 06:25 11/05/23 06:25 11/05/23 06:25 11/05/23 06:25 11/05/23 08:10
11/04/23 11/05/23 11/06/23
06:59 06:59 06:59
Actual Weight 72.575 kg 72.631 kg
11/04/23 11:50
11/05/23 07:51
Magnesium 1.9 mg/dl (1.6-2.3) 11/05/23 07:51
Triglycerides 88 mg/dl (10-149) 11/02/23 06:35
LDL Cholesterol, Calc 54 mg/dl 11/02/23 06:35
VLDL Cholesterol, Calc 17 mg/dl (0-30) 11/02/23 06:35
HDL Cholesterol 42 mg/dl 11/02/23 06:35
Physical Exam
Constitutional: No acute distress
Cardiovascular: Rhythm & rate is regular, Pedal edema is absent, Rhythm/rate is irregular and Murmur/rub/gallop absent
Data Reviewed
-
Date of Service: November 05, 2023
--- NOTE | 2023-11-05 09:08 | CON.ORTHO ---
Consultation
-
Date/Time Consultation Requested: 0711/05/2023
Date/Time Consultation Performed: 0800 11/05/2023
Requesting Provider: Young Rhoades
Performing Provider: Twan Sanchez
Reason for Consultation: Left shoulder pain
Consultation - Orthopedics
History
Orthopedic Surgery Note
CC: Left shoulder pain
HPI: 87-year-old male was admitted to [facility] 4 days ago after sustaining a fall. He landed on the left shoulder. He reports over the last day or 2 he has been having left shoulder pain. He denies pain at rest but has pain with
attempted active elevation. He denies prior shoulder pain. No fevers or chills.
PMH/PSH: CKD, HTN, DMII, h/o TKA, h/o DVT, GERD
Medications: reviewed
Family History: Family history was reviewed. Noncontributory
Social history: Nonsmoker, no illicit drugs
Exam
General appearance: Pleasant. No acute distress.
Head: Normocephalic/atraumatic
Nose: No lesions or discharge.
Skin: No obvious rashes or open wounds
Lungs: No audible wheezing, no cough or sputum production
Musculoskeletal:
LUE:
skin intact without open wounds
no apparent effusion of glenohumeral or ac joints
fires r/u/m/ain/pin
sensation intact to light touch r/u/m
Fingers wwp, 1+ radial pulse
Pain with active motion in ER and IR and forward elevation. Pain and stiffness with passive range of motion with crepitus.
No tenderness over the AC joint.
Painless passive elbow motion.
Imaging:
Left shoulder x-rays performed 11/04/2023 reviewed by me. They show advanced glenohumeral osteoarthritis with osteophyte formation and subchondral sclerosis. No signs of displaced fracture. AC joint appears intact with some degenerative changes.
AP: 87-year-old male with left shoulder pain after sustaining a fall 4 days ago. I reviewed his x-rays which show signs of advanced arthritis. No signs of displaced fracture. He has pain with active shoulder motion and weakness which could indicate
a rotator cuff tear from the fall. He may also have aggravated his left shoulder arthritis as well. We discussed using a sling for comfort as needed. We discussed outpatient follow-up with Dr. Del Castillo or Dr. Christianson to discuss further evaluation and
treatment options. All questions were answered.
> 55 minutes was spent reviewing the clinical information, evaluating the patient, and formulating clinical plan.
Allergies / Home Medications
Allergy/AdvReac Type Severity Reaction Status Date / Time
No Known Allergies Allergy Verified 11/01/23 14:38
�Medication �Instructions �Recorded
aspirin 81 mg tablet,delayed 81 mg PO DAILY Blood Clot 11/01/23
release Prevention/Tx
atorvastatin 20 mg tablet 20 mg PO HS High Cholesterol 11/01/23
carvedilol 3.125 mg tablet 3.125 mg PO BID Heart 11/01/23
Disease/Condition
cholecalciferol (vitamin D3) 25 25 mcg PO DAILY Supplement 11/01/23
mcg (1,000 unit) tablet
ondansetron HCl 4 mg tablet 4 mg PO Q8HPRN PRN nausea 11/01/23
pantoprazole 40 mg tablet,delayed 40 mg PO DAILY Gastrointestinal 11/01/23
release Issue
sodium chloride 1,000 mg soluble 1,000 mg PO DAILY Electrolyte 11/01/23
tablet Repletion
therapeutic multivitamin 1 tab PO DAILY Supplement 11/01/23
valsartan 160 mg tablet 160 mg PO DAILY Blood Pressure 11/01/23
Vital Signs / Lab Results
Temp Pulse Resp BP Pulse Ox
97.9 F 66 16 205/85 98
11/05/23 06:25 11/05/23 06:25 11/05/23 06:25 11/05/23 06:25 11/05/23 08:10
11/04/23 11:50
11/05/23 07:51
[2023-11-05 11:44] LABS: Glucose - Point of Care 150 mg/dl (70-99)
--- NOTE | 2023-11-05 11:44 | CM ---
[facility] letter reviewed with pt and dgt Dgt signed on chart..
Spoke with Kathia dgt [phone] reviewed PT OT evals.
Requested [facility]. Referral placed in care port. Spoke with Eliazar she accepted pt at [facility].
Spoke with Flor at [facility] she requested report and fax when pt returns to Assisted living at [facility].
Kathia dgt will transport.
[facility]
report [phone]
fax [phone]
PLAN Return to AL at [facility] with [facility] fax [phone]
--- NOTE | 2023-11-05 12:00 | PTCARENOTE ---
Patient vomited a small amount of bile this AM. Patient states 'this happens to me sometimes'. box sealing machine catcher reading a short run of bradycardia with a pause. Cardiology made aware.
--- NOTE | 2023-11-05 13:34 | W.PN.HOSP.TC ---
Today's Communication/Plan
-
Plan for possible pacemaker tomorrow, appreciate cardiology
Assessment / Plan
Assessment / Plan
Gen-AAOx3, NAD
HEENT-NC, AT, anicteric, clear oral mm
Neck-supple
CV-reg, no M, +S1/S2
Lungs-clear B/L
Abd-soft, NT, ND
Ext-no edema
Musculoskeletal-no cyanosis
Skin-warm and dry
Neuro-grossly non-focal
Psych-calm, cooperative

BRAIN MRI ( PER RADIOLOGIST'S REPORT)
'IMPRESSION: No evidence of acute intracranial abnormality.
The IACs have a normal MR appearance. No evidence for cerebellopontine angle mass.
In the left superior paramedian frontal lobe, there is a small focus of decreased T2 gradient-echo signal, which is most likely a small focus of old microhemorrhage. Additionally, in the posterior and superior right parietal lobe, subtle findings of
superficial siderosis, asymmetric compared to the left parietal lobe, suggestive of old hemorrhage.
Moderate diffuse atrophy.
Mild to moderate T2 and FLAIR white matter hyperintensities, commonly seen with aging and usually attributed to small vessel ischemic disease.
Paranasal sinus disease as described. Increased T2-weighted signal within the mastoid air cells, which is most likely benign trapped fluid'
ECHOCARDIOGRAM ( PER RADIOLOGIST'S REPORT)
'CONCLUSIONS
Normal left ventricular size with mild concentric remodeling and normal left
ventricular systolic function. Left ventricular ejection fraction is 59% by
Honeycutt's method. Stage I diastolic dysfunction suggestive of abnormal
relaxation.
Normal right ventricular size and function.
Normal atria.
Thickened aortic valve with normal leaflet excursion. Mild aortic
regurgitation.
No other significant valve abnormalities.
No evidence of pulmonary hypertension.'

Syncope and Bradycardia -possibly related to orthostatic hypotension. Monitor on telemetry. Echocardiogram with mild aortic regurgitation (among other findings). Patient states he had no premonitory symptoms prior to syncope. Rule out arrhythmic
etiology as well. Cardiology to consider EP study and pacemaker.
Orthostatic hypotension -unclear etiology. Differential diagnosis includes medication related versus autonomic dysfunction versus other. Compression stockings and abdominal binder ordered. Can add midodrine as needed.
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 Amlodipine 2.5 mg daily started.
Left Shoulder Pain from Recent Fall - likely arthritis flare or rotator cuff tear, x-ray noted, ortho consulted, sling for comfort as needed, outpatient follow-up with Dr. Del Castillo or Dr. Christianson to discuss further evaluation and treatment options
Vertigo -suspect BPPV. PT/OT consulted. Brain MRI ordered by jonathan, still pending.
Essential hypertension -complicated by orthostatic hypotension. On low-dose carvedilol. On valsartan.
Chronic hyponatremia -sodium stable, 134.
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
CAD -stable. Mild troponin elevation noted and likely acute nonischemic myocardial injury, etiology unclear. Patient denies chest pain or shortness of breath.
Hyperlipidemia -on atorvastatin.
DM2 without hyperglycemia -diet controlled.
DNR
Anticipated Discharge: > 48 hours
Subjective/Interval History
-
Date of Service: November 05, 2023
Patient was seen and examined. He reported some vomiting and nausea earlier.
Objective Data
-
Labs:
Laboratory Results
11/05/23
07:51
Sodium 133 L
Potassium 4.5
Chloride 98
Carbon Dioxide 24
BUN 23 H
Creatinine 1.4 H
Glucose 114 H
Calcium 9.2
Vital Signs:
Vital Signs
Temp Pulse Resp BP Pulse Ox
98 F 61 20 150/69 96
11/05/23 11:00 11/05/23 11:00 11/05/23 11:00 11/05/23 11:00 11/05/23 11:00
I&O
11/04/23 11/05/23 11/06/23
06:59 06:59 06:59
Intake Total 960 / 960 240 / 240
Output Total 750 / 750
Balance 210 / 210 240 / 240
[2023-11-05] MEDS: NORVASC 2.5 MG PO (14:06)
[2023-11-05 16:41] LABS: Glucose - Point of Care 109 mg/dl (70-99)
[2023-11-05] MEDS: LIPITOR 20 MG PO (20:37)
[2023-11-05 21:14] LABS: Glucose - Point of Care 122 mg/dl (70-99)
[2023-11-06] VITALS (7 sets, daily range): BP systolic 110–166; BP diastolic 52–107; PULSE 63–75; BMI 24.9
[2023-11-06 08:38] LABS: Glucose - Point of Care 113 mg/dl (70-99)
[2023-11-06] MEDS: NOVOLOG FLEXPEN-LOW RESISTANCE SC (08:40)
--- NOTE | 2023-11-06 08:57 | W.PN.CD ---
Today's Communication / Plan
-
PPM tomorrow
monitor tele
Impression / Plan
-
87 yo male with CAD, history of coronary stenting, hypertension, diabetes and CKD3b admitted with syncope
Syncope: likely due to sick sinus syndrome
-multiple episodes of dizziness, falls, and now with syncope
-EKG on presentation sinus rhythm with first-degree AV block and right bundle branch block.
-Echo 11/03/2023 with left ejection fraction 59%, mild AR
-tele 11/04 at 0830 with 6 sec pause
-plan for PPM tomorrow
CAD: stable no angina. cont ASA/statin, low dose coreg
HTN: stable. cont current regimen
CKD3b: stable.
Physical Exam
Vital Signs/Labs
Vital Signs
Temp Pulse Resp BP Pulse Ox
97.4 F 67 16 126/85 94
11/06/23 07:25 11/06/23 07:25 11/06/23 07:25 11/06/23 07:25 11/06/23 07:25
11/05/23 11/06/23 11/07/23
06:59 06:59 06:59
Actual Weight 72.631 kg 71.923 kg
Magnesium 1.9 mg/dl (1.6-2.3) 11/05/23 07:51
Triglycerides 88 mg/dl (10-149) 11/02/23 06:35
LDL Cholesterol, Calc 54 mg/dl 11/02/23 06:35
VLDL Cholesterol, Calc 17 mg/dl (0-30) 11/02/23 06:35
HDL Cholesterol 42 mg/dl 11/02/23 06:35
Physical Exam
Constitutional: No acute distress and Comfortable
EENT: Moist mucous membranes
Cardiovascular: Rhythm & rate is regular, Pedal edema is absent, JVD pressure is normal and Systolic murmur absent
Respiratory: Respiratory effort normal and Lungs clear to auscul.
GI: Soft and Distention absent
Neuro/Psych: Alert and Oriented
Data Reviewed
-
Date of Service: November 06, 2023
EKG: Other (tele: 6 sec pause 11/04)
Echo: Report Reviewed by me
Labs: Labs Reviewed by me
[2023-11-06] MEDS: PROTONIX 40 MG PO (09:29)
[2023-11-06] MEDS: COREG 3.125 MG PO ×2 (09:29→20:00)
[2023-11-06] MEDS: SODIUM CHLORIDE 1 GRAM PO (09:29)
[2023-11-06] MEDS: NORVASC 2.5 MG PO (09:29)
[2023-11-06] MEDS: ASPIR LOW (ENTERIC COATED) 81 MG PO (09:30)
[2023-11-06] MEDS: DIOVAN 160 MG PO (09:30)
[2023-11-06 09:49] LABS: Hematocrit 32.5 % (39.0-52.0); Hemoglobin 11.7 g/dL (13.0-18.0); Mean Corpuscular Hgb 36.2 pg (27.0-31.0); Mean Corpuscular Volume 100.6 fL (80.0-94.0); Mean Platelet Volume 8.9 fL (7.4-10.4); Platelet Count 146 10^3/uL (130-400); Red Blood Cell Count 3.23 10^6/uL (4.70-6.10); Red Cell Dist. Width 11.6 % (11.5-14.5); White Blood Cell Count 6.1 10^3/uL (4.8-10.8)
[2023-11-06 10:23] LABS: Blood Urea Nitrogen 23 mg/dl (9-20); Calcium 9.2 mg/dl (8.4-10.2); Carbon Dioxide 25 mmol/L (22-30); Chloride 98 mmol/L (98-107); Estimated Creatinine Clearance 39 ml/min; Glucose 108 mg/dl (70-99); Potassium 4.8 mmol/L (3.5-5.1); Sodium 134 mmol/L (135-145); eGFR 53.84
[2023-11-06 12:16] LABS: Glucose - Point of Care 177 mg/dl (70-99)
[2023-11-06] MEDS: NOVOLOG FLEXPEN-LOW RESISTANCE 1 UNITS SC ×2 (12:26→17:00)
[2023-11-06 16:27] LABS: Glucose - Point of Care 172 mg/dl (70-99)
--- NOTE | 2023-11-06 19:28 | W.PN.HOSP.TC ---
Today's Communication/Plan
-
Pacemaker tomorrow
Assessment / Plan
Assessment / Plan
Physical Exam
Gen-AAOx3, NAD
HEENT-NC, AT, anicteric, clear oral mm
Neck-supple
CV-reg, no M, +S1/S2
Lungs-clear B/L
Abd-soft, NT, ND
Ext-no edema
Musculoskeletal-no cyanosis
Skin-warm and dry
Neuro-grossly non-focal
Psych-calm, cooperative

BRAIN MRI ( PER RADIOLOGIST'S REPORT)
'IMPRESSION: No evidence of acute intracranial abnormality.
The IACs have a normal MR appearance. No evidence for cerebellopontine angle mass.
In the left superior paramedian frontal lobe, there is a small focus of decreased T2 gradient-echo signal, which is most likely a small focus of old microhemorrhage. Additionally, in the posterior and superior right parietal lobe, subtle findings of
superficial siderosis, asymmetric compared to the left parietal lobe, suggestive of old hemorrhage.
Moderate diffuse atrophy.
Mild to moderate T2 and FLAIR white matter hyperintensities, commonly seen with aging and usually attributed to small vessel ischemic disease.
Paranasal sinus disease as described. Increased T2-weighted signal within the mastoid air cells, which is most likely benign trapped fluid'
ECHOCARDIOGRAM ( PER RADIOLOGIST'S REPORT)
'CONCLUSIONS
Normal left ventricular size with mild concentric remodeling and normal left
ventricular systolic function. Left ventricular ejection fraction is 59% by
Honeycutt's method. Stage I diastolic dysfunction suggestive of abnormal
relaxation.
Normal right ventricular size and function.
Normal atria.
Thickened aortic valve with normal leaflet excursion. Mild aortic
regurgitation.
No other significant valve abnormalities.
No evidence of pulmonary hypertension.'

Syncope and Bradycardia -possibly related to orthostatic hypotension. Monitor on telemetry. Echocardiogram with mild aortic regurgitation (among other findings). Patient states he had no premonitory symptoms prior to syncope. Rule out arrhythmic
etiology as well. Cardiology to perform pacemaker placement tomorrow.
Orthostatic hypotension -unclear etiology. Differential diagnosis includes medication related versus autonomic dysfunction versus other. Compression stockings and abdominal binder ordered. Can add midodrine as needed.
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 Amlodipine 2.5 mg daily started.
Left Shoulder Pain from Recent Fall - likely arthritis flare or rotator cuff tear, x-ray noted, ortho consulted, sling for comfort as needed, outpatient follow-up with Dr. Del Castillo or Dr. Christianson to discuss further evaluation and treatment options
Vertigo -suspect BPPV. PT/OT consulted. Brain MRI ordered by jonathan, still pending.
Essential hypertension -complicated by orthostatic hypotension. On low-dose carvedilol. On valsartan.
Chronic hyponatremia -sodium stable, 134.
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
CAD -stable. Mild troponin elevation noted and likely acute nonischemic myocardial injury, etiology unclear. Patient denies chest pain or shortness of breath.
Hyperlipidemia -on atorvastatin.
DM2 without hyperglycemia -diet controlled.
DNR
Anticipated Discharge: 24 - 48 hours
Subjective/Interval History
-
Date of Service: November 06, 2023
Patient was seen and examined. No new symptoms or complaints.
Objective Data
-
Labs:
Laboratory Results
11/06/23
09:35
WBC 6.1
Hgb 11.7 L
Hct 32.5 L
Plt Count 146
Sodium 134 L
Potassium 4.8
Chloride 98
Carbon Dioxide 25
BUN 23 H
Creatinine 1.3
Glucose 108 H
Calcium 9.2
Vital Signs:
Vital Signs
Temp Pulse Resp BP Pulse Ox
97.2 F 61 16 129/54 98
11/06/23 15:20 11/06/23 15:20 11/06/23 15:20 11/06/23 15:20 11/06/23 15:20
I&O
11/05/23 11/06/23 11/07/23
06:59 06:59 06:59
Intake Total 240 / 240 120 / 120
Balance 240 / 240 120 / 120
[2023-11-06] MEDS: LIPITOR 20 MG PO (20:00)
[2023-11-06 21:58] LABS: Glucose - Point of Care 99 mg/dl (70-99)
[2023-11-07] VITALS (7 sets, daily range): BP systolic 134–172; BP diastolic 67–78; BMI 25.1
[2023-11-07 06:08] LABS: Glucose - Point of Care 98 mg/dl (70-99)
[2023-11-07] MEDS: NOVOLOG FLEXPEN-LOW RESISTANCE SC ×3 (07:30→18:13)
[2023-11-07] MEDS: PROTONIX 40 MG PO (10:28)
[2023-11-07] MEDS: DIOVAN 160 MG PO (10:28)
[2023-11-07] MEDS: SODIUM CHLORIDE 1 GRAM PO (10:29)
[2023-11-07] MEDS: COREG 3.125 MG PO ×2 (10:29→19:52)
[2023-11-07] MEDS: ASPIR LOW (ENTERIC COATED) 81 MG PO (10:29)
[2023-11-07] MEDS: NORVASC 2.5 MG PO (10:29)
[2023-11-07 10:45] LABS: Hematocrit 32.2 % (39.0-52.0); Hemoglobin 11.7 g/dL (13.0-18.0); Mean Corp Hgb Conc. 36.3 g/dL (33.0-37.0); Mean Corpuscular Hgb 35.9 pg (27.0-31.0); Mean Corpuscular Volume 98.8 fL (80.0-94.0); Mean Platelet Volume 9.3 fL (7.4-10.4); Platelet Count 161 10^3/uL (130-400); Red Blood Cell Count 3.26 10^6/uL (4.70-6.10); Red Cell Dist. Width 11.9 % (11.5-14.5); White Blood Cell Count 6.4 10^3/uL (4.8-10.8)
[2023-11-07 11:07] LABS: Blood Urea Nitrogen 25 mg/dl (9-20); Calcium 9.1 mg/dl (8.4-10.2); Carbon Dioxide 24 mmol/L (22-30); Chloride 98 mmol/L (98-107); Estimated Creatinine Clearance 35 ml/min; Glucose 117 mg/dl (70-99); Magnesium 1.9 mg/dl (1.6-2.3); Potassium 4.9 mmol/L (3.5-5.1); Sodium 133 mmol/L (135-145); eGFR 48.95
[2023-11-07 11:54] LABS: Glucose - Point of Care 96 mg/dl (70-99)
--- NOTE | 2023-11-07 13:38 | ITS.CL.PACE ---
Civil Rights Attorney - Pacemaker Implant
Pacemaker Implant
Procedure Report:
Date of Procedure: November 07, 2023.
Procedure: Pacemaker Implantation.
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
Performing physician: Paresh Reese MD., [facility].
Implants:
Pulse Generator: Medtronic; Model# [id number]; Serial# [id number].
RV Lead: Medtronic; Model# 5076-52cm; Serial# [id number].
RV Lead: Medtronic; Model# 3830-69cm; Serial# [id number].
Technique: A time out was performed. The procedure site was identified. The patient was anesthetized by the anesthesia service. Preoperative cefazolin was administered. The patient was prepped and draped in the usual fashion. Local anesthetic was
applied to the left prepectoral subcutaneous tissue. A 3 inch incision was made along the left deltopectoral groove. Dissection was carried to the fascia. The left cephalic vein was easily isolated and proximal and distal control with 2-0 Vicryl
suture. Using a micropuncture needle to access the cephalic vein under direct visualization a wire was advanced into the central circulation. A 7 Fr introducer was placed to allow two 0.35 J wires to be advanced. The leads were introduced with
hemostatic peel away introducer sheaths. The RV lead was placed using utilizing the Zanbato His delivery catheter ([id number]) that was advanced to the left bundle area as confirmed by fluoroscopy in the AZERI and BERNAL projections. The lead tip was
advanced. PVC morphology was reviewed. When a satisfactory location was identified the lead was screwed into position with serial turns. After each series of turns unipolar sensed morphology and impedance, and paced morphology of V1 was analyzed.
The lead was further advanced until satisfactory morphology and electrical characteristics were confirmed. The RV lead was placed in the second location evaluated. The long guiding sheath was cut and removed from the RV without change in lead
position, impedance, sensing, or capture. The lead was sutured to the underlying pectoralis fascia with 0-silk suture. The atrial lead was placed in the right atrial appendage. 8 volt pacing from each lead did not capture the diaphragm. The atrial
leads was secured to the pectoralis muscle and fascia. A subcutaneous pocket was created with Bovie cautery. Hemostasis was excellent. The leads were appropriately attached to the device. The pocket was irrigated with antibiotic solution. The device
and leads were placed in the pocket. The incision was closed in three layers with absorbable suture. Steri-strips and a silver impregnated dressing were placed. Estimated blood loss was less than 10 ml. There were no complications. Fluoroscopy time
4.3 minutes and DAP 1.19 GyCM2. The device was then interrogated after skin closure.
Lead Analysis:
RA lead: P: 4.5 mV; Threshold: 0.5 V @ 0.4 ms; Impedance: 494 ohms.
RV lead (bipolar): R: 16 mV; Threshold: 1 V @ 0.4 ms; Impedance: 1102 ohms.
RV lead (unipolar): R: 20 mV; Threshold: 0.75 V @ 0.4 ms; Impedance: 893 ohms.
Paced QRS characteristics: V1 has QR morphology and measures 98 ms in duration, LVAT (stim to peak V5/V6) is 85 ms, and R peak V1 to R peak V6 is 26 ms.
Final Programming: MVP (AAIR to DDDR) 60-130 bpm.
Conclusion: Uncomplicated Medtronic pacemaker implant. The pacing system is MRI conditional. The RV lead successfully captures the left bundle area.
Recommendation: Routine post pacemaker care.
cc: Tejas Peguero MD, PhD.
--- NOTE | 2023-11-07 14:39 | W.PN.HOSP.TC ---
Today's Communication/Plan
-
Pacemaker placement today
Monitor overnight with anticipated discharge tomorrow
Assessment / Plan
Assessment / Plan
Physical Exam
Physical Exam was not performed as patient was not present in his room at the time of attempted patient encounter.

BRAIN MRI ( PER RADIOLOGIST'S REPORT)
'IMPRESSION: No evidence of acute intracranial abnormality.
The IACs have a normal MR appearance. No evidence for cerebellopontine angle mass.
In the left superior paramedian frontal lobe, there is a small focus of decreased T2 gradient-echo signal, which is most likely a small focus of old microhemorrhage. Additionally, in the posterior and superior right parietal lobe, subtle findings of
superficial siderosis, asymmetric compared to the left parietal lobe, suggestive of old hemorrhage.
Moderate diffuse atrophy.
Mild to moderate T2 and FLAIR white matter hyperintensities, commonly seen with aging and usually attributed to small vessel ischemic disease.
Paranasal sinus disease as described. Increased T2-weighted signal within the mastoid air cells, which is most likely benign trapped fluid'
ECHOCARDIOGRAM ( PER RADIOLOGIST'S REPORT)
'CONCLUSIONS
Normal left ventricular size with mild concentric remodeling and normal left
ventricular systolic function. Left ventricular ejection fraction is 59% by
Honeycutt's method. Stage I diastolic dysfunction suggestive of abnormal
relaxation.
Normal right ventricular size and function.
Normal atria.
Thickened aortic valve with normal leaflet excursion. Mild aortic
regurgitation.
No other significant valve abnormalities.
No evidence of pulmonary hypertension.'

Syncope and Bradycardia -possibly related to orthostatic hypotension. Monitor on telemetry. Echocardiogram with mild aortic regurgitation (among other findings). Patient states he had no premonitory symptoms prior to syncope. Rule out arrhythmic
etiology as well. Cardiology to performed pacemaker placement today.
Orthostatic hypotension -unclear etiology. Differential diagnosis includes medication related versus autonomic dysfunction versus other. Compression stockings and abdominal binder ordered. Can add midodrine as needed.
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 Amlodipine 2.5 mg daily started with improvement.
Left Shoulder Pain from Recent Fall - likely arthritis flare or rotator cuff tear, x-ray noted, ortho consulted, sling for comfort as needed, outpatient follow-up with Dr. Del Castillo or Dr. Christianson to discuss further evaluation and treatment options
Vertigo -suspect BPPV. PT/OT consulted. Brain MRI ordered by jonathan, still pending.
Essential hypertension -complicated by orthostatic hypotension. On low-dose carvedilol. On valsartan.
Chronic hyponatremia -sodium stable, 134.
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
CAD -stable. Mild troponin elevation noted and likely acute nonischemic myocardial injury, etiology unclear. Patient denies chest pain or shortness of breath.
Hyperlipidemia -on atorvastatin.
DM2 without hyperglycemia -diet controlled.
DNR
Anticipated Discharge: Within 24 hours
Subjective/Interval History
-
Date of Service: November 07, 2023
Patient was not present in his room at the time of attempted patient encounter; he was getting his pacemaker.
Objective Data
-
Labs:
Laboratory Results
11/07/23
10:20
WBC 6.4
Hgb 11.7 L
Hct 32.2 L
Plt Count 161
Sodium 133 L
Potassium 4.9
Chloride 98
Carbon Dioxide 24
BUN 25 H
Creatinine 1.4 H
Glucose 117 H
Calcium 9.1
Vital Signs:
Vital Signs
Temp Pulse Resp BP Pulse Ox
97.6 F 61 20 134/75 99
11/07/23 10:50 11/07/23 10:50 11/07/23 10:50 11/07/23 10:50 11/07/23 10:50
I&O
11/06/23 11/07/23 11/08/23
06:59 06:59 06:59
Intake Total 120 / 120
Balance 120 / 120
--- NOTE | 2023-11-07 15:46 | PTCARENOTE ---
Received patient at 1020 from [facility] [employer] S/P insertion of Pacemaker. Pt AAOx3. Pt on Telemetry- SB, 1st degree AVB, BBB, PVC's and A-paced. Left chest water Aquacel dressing dry an intact. Pt offered no complaints. Made patient comfortable.
Cont to assess patient status.
[2023-11-07] MEDS: ANCEF 5 IV ×2 (17:06→23:03)
--- NOTE | 2023-11-07 17:37 | CM ---
Had pacemaker placed.
Requested [facility]. Referral placed in care port. Spoke with Eliazar she accepted pt at [facility].
Spoke with Flor at [facility] she requested report and fax when pt returns to Assisted living at [facility].
[facility] will transport.
[facility] assisted [facility]
report [phone]
fax [phone]
PLAN Return to AL at [facility] with [facility] fax [phone]
[2023-11-07 18:06] LABS: Glucose - Point of Care 125 mg/dl (70-99)
[2023-11-07] MEDS: LIPITOR 20 MG PO (19:52)
[2023-11-07 21:42] LABS: Glucose - Point of Care 132 mg/dl (70-99)
[2023-11-08 03:30] VITALS: BP 153/78
[2023-11-08 06:00] VITALS: BMI 24.8
[2023-11-08 07:00] VITALS: BP 146/75
[2023-11-08 07:13] LABS: Glucose - Point of Care 100 mg/dl (70-99)
[2023-11-08] MEDS: NOVOLOG FLEXPEN-LOW RESISTANCE SC ×2 (07:31→11:19)
--- NOTE | 2023-11-08 09:00 | W.PN.CD ---
Addendum entered and electronically signed by Donavan High MD 11/08/23 11:35:
I saw and examined the patient.
FP PGY 2 note was reviewed and I agree with the note.
Patient is doing well post pacemaker implant. Site appears fine.
Stable for discharge from a cardiology perspective
Patient will follow-up in our office as scheduled on 11/14/[address] Porter
Original Note:
Today's Communication / Plan
-
Monitor tele
Impression / Plan
-
87 yo male with CAD, history of coronary stenting, hypertension, diabetes and CKD3b admitted with syncope
Syncope: likely due to sick sinus syndrome s/p Pacemaker Implantation 11/07/23
-Chest x-ray postcardiac device insertion with no evidence of pneumothorax, no acute pleural or parenchymal abnormalities
-EKG on presentation sinus rhythm with first-degree AV block and right bundle branch block.
-Echo 11/03/2023 with left ejection fraction 59%, mild AR
-tele 11/04 at 0830 with 6 sec pause
CAD: stable no angina. cont ASA/statin, low dose coreg
HTN: stable. cont current regimen
CKD3b: stable.
Saw patient at bedside. Denies chest pain, denies shortness of breath. Dressing dry and intact with No erythema.
Physical Exam
Vital Signs/Labs
Vital Signs
Temp Pulse Resp BP Pulse Ox
97.7 F 64 16 146/75 95
11/08/23 07:00 11/08/23 07:00 11/08/23 07:00 11/08/23 07:00 11/08/23 07:00
11/07/23 11/08/23 11/09/23
06:59 06:59 06:59
Actual Weight 72.575 kg 71.838 kg
11/07/23 10:20
11/07/23 10:20
Magnesium 1.9 mg/dl (1.6-2.3) 11/07/23 10:20
Triglycerides 88 mg/dl (10-149) 11/02/23 06:35
LDL Cholesterol, Calc 54 mg/dl 11/02/23 06:35
VLDL Cholesterol, Calc 17 mg/dl (0-30) 11/02/23 06:35
HDL Cholesterol 42 mg/dl 11/02/23 06:35
Physical Exam
Constitutional: No acute distress
Cardiovascular: Rhythm & rate is regular and Pedal edema is absent
Respiratory: Respiratory effort normal and Lungs clear to auscul.
Other: Cardiac Device Site (Dressing site intact)
Data Reviewed
-
Date of Service: November 08, 2023
[2023-11-08] MEDS: DIOVAN 160 MG PO (09:12)
[2023-11-08] MEDS: PROTONIX 40 MG PO (09:12)
[2023-11-08] MEDS: COREG 3.125 MG PO (09:13)
[2023-11-08] MEDS: ASPIR LOW (ENTERIC COATED) 81 MG PO (09:13)
[2023-11-08] MEDS: NORVASC 2.5 MG PO (09:13)
[2023-11-08] MEDS: SODIUM CHLORIDE 1 GRAM PO (09:13)
[2023-11-08 11:12] LABS: Glucose - Point of Care 147 mg/dl (70-99)
[2023-11-08 11:19] VITALS: BP 113/53
--- NOTE | 2023-11-08 13:40 | W.PN.HOSP.TC ---
Today's Communication/Plan
-
Discharge today
Assessment / Plan
Assessment / Plan
Physical Exam
Gen-AAOx3, NAD
HEENT-Normocephalic
Neck-supple
CV-reg, no M, +S1/S2
Lungs-clear B/L
Abd-soft, NT, ND. Positive bowel sounds.
Ext-no edema
Musculoskeletal-no cyanosis
Skin-warm and dry
Neuro-grossly non-focal
Psych-calm, cooperative

BRAIN MRI ( PER RADIOLOGIST'S REPORT)
'IMPRESSION: No evidence of acute intracranial abnormality.
The IACs have a normal MR appearance. No evidence for cerebellopontine angle mass.
In the left superior paramedian frontal lobe, there is a small focus of decreased T2 gradient-echo signal, which is most likely a small focus of old microhemorrhage. Additionally, in the posterior and superior right parietal lobe, subtle findings of
superficial siderosis, asymmetric compared to the left parietal lobe, suggestive of old hemorrhage.
Moderate diffuse atrophy.
Mild to moderate T2 and FLAIR white matter hyperintensities, commonly seen with aging and usually attributed to small vessel ischemic disease.
Paranasal sinus disease as described. Increased T2-weighted signal within the mastoid air cells, which is most likely benign trapped fluid'
ECHOCARDIOGRAM ( PER RADIOLOGIST'S REPORT)
'CONCLUSIONS
Normal left ventricular size with mild concentric remodeling and normal left
ventricular systolic function. Left ventricular ejection fraction is 59% by
Honeycutt's method. Stage I diastolic dysfunction suggestive of abnormal
relaxation.
Normal right ventricular size and function.
Normal atria.
Thickened aortic valve with normal leaflet excursion. Mild aortic
regurgitation.
No other significant valve abnormalities.
No evidence of pulmonary hypertension.'

Syncope and Bradycardia -possibly related to orthostatic hypotension. Monitor on telemetry. Echocardiogram with mild aortic regurgitation (among other findings). Patient states he had no premonitory symptoms prior to syncope. Rule out arrhythmic
etiology as well. Cardiology performed pacemaker placement on 11/07/23.
Orthostatic hypotension -unclear etiology. Differential diagnosis includes medication related versus autonomic dysfunction versus other. Compression stockings and abdominal binder ordered. Can add midodrine as needed.
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 Amlodipine 2.5 mg daily started with improvement.
Left Shoulder Pain from Recent Fall - likely arthritis flare or rotator cuff tear, x-ray noted, ortho consulted, sling for comfort as needed, outpatient follow-up with Dr. Del Castillo or Dr. Christianson to discuss further evaluation and treatment options
Vertigo -suspect BPPV. PT/OT consulted. Brain MRI ordered by jonathan, still pending.
Essential hypertension -complicated by orthostatic hypotension. On low-dose carvedilol. On valsartan.
Chronic hyponatremia -sodium stable, 133.
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
CAD -stable. Mild troponin elevation noted and likely acute nonischemic myocardial injury, etiology unclear. Patient denies chest pain or shortness of breath. Continue ASA/statin, low dose Coreg.
Hyperlipidemia -on atorvastatin.
DM2 without hyperglycemia -diet controlled.
DNR
More than 30 minutes spent in discharge including
Final examination of the patient
Summarizing hospital stay
Instructions for continuing care to all relevant caregivers
Preparation of discharge records, prescriptions, and referral forms
Total time spent (in minutes): 39
Anticipated Discharge: Today
Subjective/Interval History
-
Date of Service: November 08, 2023
Patient was seen and examined. He reported no new significant symptoms or complaints.
Objective Data
-
Vital Signs:
Vital Signs
Temp Pulse Resp BP Pulse Ox
98.7 F 61 16 113/53 95
11/08/23 11:19 11/08/23 11:19 11/08/23 11:19 11/08/23 11:19 11/08/23 11:19
I&O
11/07/23 11/08/23 11/09/23
06:59 06:59 06:59
Intake Total 660 / 660
Output Total 700 / 700
Balance -40 / -40
[2023-11-08 14:15] VITALS: BP 134/68; PULSE 60; O2SAT 97
--- NOTE | 2023-11-08 14:20 | W.DCSUMMARY ---
Discharge Summary
Discharge Data
Date of Admission: 11/06/23
Date of Discharge: 11/08/23
Total time spent discharging patient (in min): 39
-
Pending Results: No
Hospital Course
87 y/o male who presented with dizziness and loss of consciousness, after which he presented to [facility], where he head a CT Head down through CT Pelvis, was discharged back home, then presented to the [facility] Emergency Room with dizziness.
Brain MRI was done, and it was negative for acute stroke, but did show small focus of old microhemorrhage (please see full MRI Brain report for all the details). Echocardiogram was also done (please see below and full echo report for all the
details). Case was discussed with neurology who mentioned that in the setting of patient's orthostatic hypotension and unrevealing Brain MRI, there was no need for neurological consultation. Patient had supine hypertension with systolic blood
pressure in the low 200s mmHg, therefore low-dose Amlodipine was started. Cardiology was consulted. Patient was noted to have continued episodes of dizziness and bradycardia, and in the setting of significantly long pause and significant conduction
disease, and uncomplicated Medtronic pacemaker implant - the pacing system was noted to be MRI conditional. Patient had left shoulder pain from his recent falls prior to arrival, x-ray was done, and orthopedics was consulted, who recommended sling
and outpatient follow-up. Patient was stable for discharge.
Discharge Plan
-
Patient Disposition: Assisted Living
Discharge Diagnosis/Procedures: Pacemaker implant
Syncope and Bradycardia
Orthostatic hypotension
Supine Hypertension
Left Shoulder Pain from Recent Fall - likely arthritis flare or rotator cuff tear
Vertigo
Essential hypertension
Chronic hyponatremia
Chronic Kidney Disease Stage 3B
Coronary Artery Disease
Hyperlipidemia
Type 2 Diabetes Mellitus
Brain MRI (as per radiologist's report)
'IMPRESSION: No evidence of acute intracranial abnormality.
The IACs have a normal MR appearance. No evidence for cerebellopontine angle mass.
In the left superior paramedian frontal lobe, there is a small focus of decreased T2 gradient-echo signal, which is most likely a small focus of old microhemorrhage. Additionally, in the posterior and superior right parietal lobe, subtle findings of
superficial siderosis, asymmetric compared to the left parietal lobe, suggestive of old hemorrhage.
Moderate diffuse atrophy.
Mild to moderate T2 and FLAIR white matter hyperintensities, commonly seen with aging and usually attributed to small vessel ischemic disease.
Paranasal sinus disease as described. Increased T2-weighted signal within the mastoid air cells, which is most likely benign trapped fluid'
ECHOCARDIOGRAM ( PER CARRIER DRIVER'S REPORT)
'CONCLUSIONS
Normal left ventricular size with mild concentric remodeling and normal left
ventricular systolic function. Left ventricular ejection fraction is 59% by
Honeycutt's method. Stage I diastolic dysfunction suggestive of abnormal
relaxation.
Normal right ventricular size and function.
Normal atria.
Thickened aortic valve with normal leaflet excursion. Mild aortic
regurgitation.
No other significant valve abnormalities.
No evidence of pulmonary hypertension.'
Condition: Fair
Diet: Low Fat, Low Cholesterol and Diabetic, Carb Controlled
Activity: Other activity
Additional Activity: Post pacemaker activity instructions as per cardiology team. Call rn paralegal's office if you you have any questions about this.
Driving Restrictions: No driving for 1 week
Blood Work: Recheck CBC, BMP and Magnesium in 4 to 5 days
Other Services: [facility]
Activity Restrictions/Additional Instructions:
Follow pacemaker care instructions as per rn paralegal. Call rn paralegal's office if you you have any questions about this.
Stand Alone Forms: DC Inst - Implanted Device
Referrals:
NONE,* [Family Provider] -
Saurav Christianson MD [Active] - in less than 1 week (Hospital Follow-up: possible rotator cuff tear after fall, needs close orthopedics follow-up)
Les Graham MD [Active] - 11/14/23 12:40 pm (Post device incision check appointment)
Additional Discharge Medication Instructions: Amlodipine is a new medication.
Prescriptions:
New
amlodipine 2.5 mg Tablet
2.5 mg PO DAILY Qty: 30 0RF
Continued
atorvastatin 20 mg tablet
20 mg PO HS
therapeutic multivitamin Tablet
1 tab PO DAILY
aspirin 81 mg Tablet,Delayed Release (Dr/Ec)
81 mg PO DAILY
carvedilol 3.125 mg tablet
3.125 mg PO BID
pantoprazole 40 mg tablet,delayed release (DR/EC)
40 mg PO DAILY
valsartan 160 mg tablet
160 mg PO DAILY
sodium chloride 1,000 mg Tablet,Soluble
1,000 mg PO DAILY
cholecalciferol (vitamin D3) 25 mcg (1,000 unit) Tablet
25 mcg PO DAILY
Discontinued
ondansetron HCl 4 mg Tablet
4 mg PO Q8HPRN PRN (Reason: nausea)
Discharge Orders:
Discharge Patient (As Directed); Ordered 11/08/23
Ordered By: Jf Hankins
Discharge Date and Time
Discharge Date/Time: 11/08/23 16:41
Print Language: TURKISH
[2023-11-08 15:45] VITALS: BP 122/63
--- NOTE | 2023-11-08 15:49 | CM ---
Addendum entered by Lisa Goldsmith 11/08/23 15:54:
[facility] phone: [phone]
Original Note:
RENETTA spoke with Jhon' daughter regarding discharge today, returning to [facility]. Daughter will drive him home. [facility] to resume services at [facility].
RENETTA called [facility] to notify of pt's return; I spoke with Araseli who wanted the phone number to the nursing unit, despite being told that RN would call [facility] [phone] with report and records would be faxed to [phone]. RENETTA made RN
aware of probable call from [facility].
Plan: Discharge to [facility] with resumption of [facility] services.
== END 2023-11-08 16:41 | disposition home or self-care (01) | DRG 243 ==
LOC: 4 EAST ACU 19:29
PROVIDERS: Internal Medicine Cardiovascular Disease; Physician Assistant; ADMITTING PHYSICIAN Hospitalist; ATTENDING PHYSICIAN Hospitalist; CONSULT PHYSICIAN Internal Medicine Cardiovascular Disease; CONSULT PHYSICIAN Orthopaedic Surgery; EMERGENCY PHYSICIAN Student in an Organized Health Care Education/Training Program
PROC: 02H63JZ Insertion of Pacemaker Lead into Right Atrium, Percutaneous Approach (ICD-10-PCS; 2023-11-07)
PROC: 02HK3JZ Insertion of Pacemaker Lead into Right Ventricle, Percutaneous Approach (ICD-10-PCS; 2023-11-07)
PROC: 0JH606Z Insertion of Pacemaker, Dual Chamber into Chest Subcutaneous Tissue and Fascia, Open Approach (ICD-10-PCS; 2023-11-07)
DX: I49.5 Sick sinus syndrome (principal); E87.1 Hypo-osmolality and hyponatremia; I5A Non-ischemic myocardial injury (non-traumatic); I95.1 Orthostatic hypotension; I12.9 Hypertensive chronic kidney disease with stage 1 through stage 4 chronic kidney disease, or unspecified chronic kidney disease; N18.32 Chronic kidney disease, stage 3b; I25.10 Atherosclerotic heart disease of native coronary artery without angina pectoris; E78.00 Pure hypercholesterolemia, unspecified; E11.22 Type 2 diabetes mellitus with diabetic chronic kidney disease; H81.10 Benign paroxysmal vertigo, unspecified ear; G25.0 Essential tremor; M19.012 Primary osteoarthritis, left shoulder; M75.102 Unspecified rotator cuff tear or rupture of left shoulder, not specified as traumatic; K21.9 Gastro-esophageal reflux disease without esophagitis; R29.6 Repeated falls; I44.0 Atrioventricular block, first degree; I45.10 Unspecified right bundle-branch block; Z66 Do not resuscitate; Z96.652 Presence of left artificial knee joint; Z86.73 Personal history of transient ischemic attack (TIA), and cerebral infarction without residual deficits; Z95.5 Presence of coronary angioplasty implant and graft; Z86.718 Personal history of other venous thrombosis and embolism; Z79.82 Long term (current) use of aspirin; Z91.81 History of falling
CPT/HCPCS: 33208; 70551; 71045; 73030; 80048; 80053; 80061; 82962; 83036; 83735; 84443; 84484; 85025; 85027; 87070; 93005; 93306; 97163; 97166; 97530; 99285; C1769; C1785; C1887; C1892; C1898